=== PATIENT | male | born 1965 | race Caucasian/White ===

== ENCOUNTER 2024-04-12 08:28 | Outpatient (CLI) | payer BC | END 2024-04-12 08:29 | disposition home or self-care (01) | LOC: CSHRAD 08:28 | PROVIDERS: ATTEND Nurse Practitioner Family | DX: R13.10 Dysphagia, unspecified (principal); T18.9XXA Foreign body of alimentary tract, part unspecified, initial encounter | CPT/HCPCS: 74220 ==